=== PATIENT | male | born 1995 | race Caucasian/White ===

== ENCOUNTER 2018-09-14 08:11 | Outpatient (RCR) | payer OTHER | END 2018-12-06 | disposition home or self-care (01) | LOC: WSOH | DX: S29.012A Strain of muscle and tendon of back wall of thorax, initial encounter (principal); S46.812A Strain of other muscles, fascia and tendons at shoulder and upper arm level, left arm, initial encounter; X50.0XXA Overexertion from strenuous movement or load, initial encounter; Y93.H9 Activity, other involving exterior property and land maintenance, building and construction; Y92.59 Other trade areas as the place of occurrence of the external cause; Y99.0 Civilian activity done for income or pay ==